=== PATIENT | female | born 1945 | race Caucasian/White ===

== ENCOUNTER 2017-01-10 22:28 | Inpatient (IN) | payer MEDICARE, BC ==
[~2017-01-10] VITALS: Ht 152.4 cm; Wt 67.7 kg
--- NOTE | ~2017-01-10 | HEMODYNAMI ---
PATIENT:SWATHI BERNAL MEDICAL RECORD: [id number] : 43 LOCATION:[facility] D212 ADMISSION DATE: 01/10/17 Generatedon:01/12/201710:05 Patient name: SWATHI BERNAL Patient #: [id number] SSN: [id number] : 1945 Date of study: 01/12/2017 Page: Of Hemodynamic Procedure Report Patient Data Patient Demographics Procedure consent was obtained First Name: SWATHI Gender: Female Last Name: GABE : 1945 Patient #: [id number] Age: 71 year(s) Race: SSN: [id number] Additional ID: [id number] Contact details [address]: [address] [place] [address] State: [place] City: [place] Zip code: [address] Past Medical History Allergies Allergen Reaction Date Comments Reported Demerol 01/11/2017 Sulfa drugs 01/11/2017 Other allergy 01/11/2017 HYDROCODONE Other allergy 01/12/2017 Demerol, Hydrocodone, Sulfa Admission Admission Data Admission Date: 01/10/2017 Admission Time: 23:37 Arrival Date: 01/12/2017 Arrival Time: 23:37 Admit Source: Other Insurance Payor: Medicare Room #: D.2122 Weight (lbs.): 149.25 Weight (kg.): 67.7 Lab Results Lab Result Date: 01/12/2017 Lab Result Time: 0:00 Biochemistry Name Units Result Min Max BUN mg/dl 15 --(--*-)-- 7 18 Creatinine mg/dl 1 --(--*-)-- 0.6 1.3 CBC Name Units Result Min Max Hemoglobin g/dl 14.4 --(*---)-- 13.5 17.5 Procedure Procedure Types Cath Procedure PCI Procedure Coronary Stent Initial PTCA Additional Miscellaneous Procedures Moderate Sedation up to 45 minutes Peripheral Cath Diagnostic Procedure Cath Peripheral Aelwx-Vldtrtc-Tnq-Off Procedure Description Procedure Date Procedure Date: 01/12/2017 Procedure Start Time: 9:23 Procedure End Time: 9:56 Procedure Staff Name Function Micheal Castellanos MD Performing Physician Brenda Rust RT Scrub Jordan Loera RN Nurse Tessie Mayorga RT Monitor Procedure Data Cath Procedure Fluoroscopy Diagnostic fluoroscopy Total fluoroscopy Time: time: 10.2 min 10.2 min Diagnostic fluoroscopy Total fluoroscopy dose: 790 dose: 790 mGy mGy Contrast Material Contrast Material Type Amount (ml) Isovue 370 109 Entry Location Entry Primary Successful Side Size Upsize Upsize Entry Closure Succes sful Closure Location (Fr) 1 (Fr) 2 (Fr) Remarks Device Remarks Femoral Left 6 Fr 6 Fr 6 Fr Exoseal artery Short Long Short Femoral Right 6 Fr Exoseal artery Short Estimated blood loss: 5 ml Diagnostic catheters Device Type Used For End Catheter Placement Cordis Tempo 5Fr UF Multi-vessel catheter Angiography Procedure Medications Medication Administration Route Dosage Oxygen NC 2 l/min Lidocaine 2% added to field 20 Heparin Flush Bag added to field 2 bags (1000units/500ml NS) 0.9% NaCl I.V. 100 ml/hr Versed I.V. 1 mg Fentanyl I.V. 50 mcg Versed I.V. 1 mg Fentanyl I.V. 50 mcg Heparin Bolus I.V. 4000 units 0.9% NaCl I.V. bolus 150 ml Hemodynamics Rest HGB: 14.4 (g/dl) Heart Rate: 78 (bpm) Snapshots Pre Cath Intra NCS Post Cath Vital Signs Time Heart Resp SPO2 NIBP (mmHg) Rhythm Pain Sedation Rate (ipm) (%) Status Level (bpm) 9:07:57 75 19 98 151/85(132) NSR 0 (11) 10(A) , No pain 9:12:16 78 15 98 153/83(115) NSR 0 (11) 10(A) , No pain 9:16:25 81 17 97 151/92(130) NSR 0 (11) 10(A) , No pain 9:20:42 78 17 96 133/74(107) NSR 0 (11) 10(A) , No pain 9:24:47 73 18 96 130/80(100) NSR 0 (11) 9(A) , No pain 9:29:03 71 17 95 91/62(86) NSR 0 (11) 9(A) , No pain 9:33:07 69 17 95 97/57(76) NSR 0 (11) 9(A) , No pain 9:38:00 73 16 94 81/60(78) NSR 0 (11) 9(A) , No pain 9:41:59 73 16 95 94/57(86) NSR 0 (11) 9(A) , No pain 9:46:03 72 17 96 112/63(87) NSR 0 (11) 9(A) , No pain 9:50:15 71 18 96 107/60(83) NSR 0 (11) 9(A) , No pain 9:53:19 73 17 97 110/65(80) NSR 0 (11) 10(A) , No pain 9:57:27 74 9 96 119/64(89) NSR 0 (11) 10(A) , No pain 10:01:39 73 10 96 111/67(97) NSR 0 (11) 10(A) , No pain Medications Time Medication Route Dose Verified Delivered Reason Notes Effectiveness by by 9:16:27 Oxygen NC 2 Micheal Buffie used for l/min Emanuel Loera RN procedure 9:16:36 Lidocaine 2% added 20ml Micheal Micheal for local to vial Emanuel Castellanos MD anesthetic field 9:16:42 Heparin Flush added 2 Micheal Micheal used for Bag to bags Emanuel Castellanos MD procedure (1000units/500ml field NS) 9:16:51 0.9% NaCl I.V. 100 Micheal Buffie Per physician ml/hr Emanuel Loera RN 9:19:18 Versed I.V. 1 mg Micheal Buffie for sedation Emanuel Loera RN 9:19:23 Fentanyl I.V. 50 Micheal Buffie for sedation mcg Emanuel Loera RN 9:24:50 Versed I.V. 1 mg Micheal Buffie for sedation Emanuel Loera RN 9:24:54 Fentanyl I.V. 50 Micheal Buffie for sedation mcg Emanuel Loera RN 9:29:35 0.9% NaCl I.V. 150 Micheal Buffie Per physician bolus ml Emanuel Loera RN 9:33:06 Heparin Bolus I.V. 4000 Micheal Buffie for verifie d units Emanuel Loera RN anticoagulation with dr castellanos Procedure Log Time Note 8:44:36 Informed consent obtained and on chart 8:44:41 Diagnostic Cath Status : Elective 8:45:05 Jordan Loera RN sent for patient. Start room use. 8:45:06 Time tracking: Regular hours 8:45:10 Plan of Care:Hemodynamics will remain stable., Cardiac rhythm will remain stable., Comfort level will be maintained., Respiratory function will remain adequate., Patient/ family verbilizes understanding of procedure., Procedure tolerated without complication., Recovers from procedure without complications.. 8:46:42 Admit Source: Other 8:46:45 Arrival Date: 01/12/2017 11:37:00 PM 8:46:59 Insurance Payor : Medicare 9:00:19 Patient received from Med II to [facility] 2 Alert and oriented. Tansferred to table in Supine position. 9:00:20 Warm blankets applied, and hilton hugger turned on for patient comfort. 9:00:20 Correct patient and procedure confirmed by team. 9:00:21 ECG and BP/O2 sat monitors applied to patient. 9:04:56 Vital chart was started 9:04:57 Full Disclosure recording started 9:05:15 H&P Date Dictated: 01/11/2017 Within 30 days and on chart., H&P Addendum completed by physician on day of procedure. (MUST COMPLETE FOR ALL OUTPATIENTS). 9:05:21 Pre-procedure instructions explained to patient. 9:05:21 Pre-op teaching completed and patient verbalized understanding. 9:05:23 Family in patients room. 9:05:31 Patient NPO since Midnight. 9:06:51 Vital chart was stopped 9:06:54 Vital chart was started 9:09:44 Patient allergic to Other allergyDemerol, Hydrocodone, Sulfa 9:09:46 Is the patient allergic to Iodine/contrast media? No. 9:09:47 Was the patient premedicated? No 9:10:15 Is patient on blood thinner?Yes 9:10:17 ACC The patient was administered the following blood thiners within the last 24 hours: ACCPlavix 9:10:23 Patient diabetic? No. 9:10:25 Previous problem with sedation/anesthesia? No ? 9:10:27 Snore? Yes 9:10:29 Sleep apnea? No 9:10:29 Deviated septum? No 9:10:30 Opens mouth fully? Yes 9:10:31 Sticks out tongue? Yes 9:10:35 Airway obstruction? No ? 9:10:46 Dentures? Yes in tight 9:10:50 Pre procedure: right dorsailis pedis pulse 1+ Palpable, but thready & weak; easily obliterated 9:10:52 Patient pain scale 0/10 ?. 9:10:59 IV patent on arrival in left forearm with 0.9% NaCl at [facility]. 9:11:04 Lab results completed and on chart. 9:11:08 Left groin area was prepped with chlora-prep and draped in sterile fashion 9:: Alarms reviewed by R. N. :: Sharps counted by scrub and verified by R.N. ::52 Lab Result : Creatinine 1 mg/dl 9:: Lab Result : BUN 15 mg/dl 9::52 Lab Result : Hemoglobin 14.4 g/dl 9:16:27 Oxygen 2 l/min NC was administered by Jordan Loera RN; used for procedure; 9:16:36 Lidocaine 2% 20ml vial added to field was administered by Micheal Castellanos MD; for local anesthetic; 9:16:42 Heparin Flush Bag (1000units/500ml NS) 2 bags added to field was administered by Micheal Castellanos MD; used for procedure; 9:16:51 0.9% NaCl 100 ml/hr I.V. was administered by Jordan Loera RN; Per physician; 9:17:13 Baseline sample Acquired. 9:18:32 Physician arrived 9:18:33 --------ALL STOP TIME OUT------ 9:18:33 Final Timeout: patient, procedure, and site verified with staff and physician. All members of the team are in agreement. 9:18:35 Left groin site verified by team. 9:18:38 Physical assessment completed. ASA score P 2 - A patient with mild systemic disease as per Micheal Castellanos MD. 9:18:42 Sedation plan: IV Moderate Sedation Versed, Fentanyl 9:19:03 Use device set Femoral PCI 9:19:04 Acist Syringe opened to sterile field. 9:19:04 Acist Hand Control opened to sterile field. 9:19:05 Bag Decanter opened to sterile field. 9:19:06 Medline Cath Pack opened to sterile field. 9:19:06 Terumo 6Fr Vershire Sheath opened to sterile field. 9:19:07 St Chatianya 260cm J .035 wire opened to sterile field. 9:19:07 Merit BasixCompak Inflation Kit opened to sterile field. 9:19:08 Acist Manifold opened to sterile field. 9:19:08 Tegaderm 4 x 4 opened to sterile field. 9:19:16 Chen Whisper J 300cm 0.014 guide wire opened to sterile field. 9:19:18 Versed 1 mg I.V. was administered by Jordan Loera RN; for sedation; 9::23 Fentanyl 50 mcg I.V. was administered by Jordan Loera RN; for sedation; 9:23:23 Procedure started. 9:23:29 Local anesthetic to left femerol artery with Lidocaine 2% by Micheal Castellanos MD.INITIAL ACCESS ONLY 9:24:32 A 6 Fr Short sheath was inserted into the Left Femoral artery 9:24:50 Versed 1 mg I.V. was administered by Jordan Loera RN; for sedation; 9:24:54 Fentanyl 50 mcg I.V. was administered by Jordan Loera RN; for sedation; 9:25:39 Cordis 6FR XBLAD 3.5 guide catheter opened to sterile field. 9:26:20 6 Fr xblad 3.5 guide catheter was inserted over the wire 9:28:41 Catheter removed. unable to cannulate vessel. 9:29:14 left iliac totally occluded; preparing for right femoral access 9:29:33 Cordis 6Fr Brite Tip 35cm Sheath opened to sterile field. 9:29:35 0.9% NaCl 150 ml I.V. bolus was administered by Jordan Loera RN; Per physician; 9:30:33 Sheath upsized to a 6 Fr Long. 9:31:21 Local anesthetic to right femoral artery with Lidocaine 2% by Micheal Castellanos MD.ADDITIONAL ACCESS 9:31:35 A 6 Fr Short sheath was inserted into the Right Femoral artery 9:33:06 Heparin Bolus 4000 units I.V. was administered by Jordan Loera RN; for anticoagulation; verified with dr castellanos 9:33:06 Terumo TORQUE DEVICE PLASTIC .038 opened to sterile field. 9:33:13 Terumo ANGLE 260cm glide wire opened to sterile field. 9:33:37 6 Fr xblad 3.5 guide catheter was inserted over the wire 9:33:44 LCA angiography performed. 9:33:47 Injector settings: Ml/sec: 3, Volume: 6, 9:33:53 whisper wire advanced. 9:33:56 Wire advanced across lesion. 9:34:05 Crab Orchard Amma Eagleye IVUS Catheter opened to sterile field. 9:34:08 IVUS catheter advanced over wire. 9:36:19 IVUS pass to LAD lesion performed. 9:36:21 IVUS catheter removed over wire. 9:37:15 Inflation Number: 1 A 1366 Technologiestronic Integrity 3.0 X 15 stent was prepped and advanced across the Prox LAD. The stent was deployed at 7 DULCE for 0:10 (min:sec). 9:37:34 Inflation number: 2 The stent balloon was then re-inflated across the Prox LAD to 0 DULCE for 0:09 (min:sec). 9:38:35 Wire redirected to diagonal. 9:40:20 Stent catheter was removed intact over wire. 9:40:24 Inflation number: 1 A Hachita Sci [place] 2.0 X 12 balloon was prepped and advanced across the 1st Diag, then inflated to 11 DULCE for 0:10 (min:sec). 9:41:00 Inflation number: 2 The Hachita Sci [place] 2.0 X 12 balloon was reinflated across the 1st Diag, to 11 DULCE for 0:15 (min:sec). 9:41:22 Balloon removed over the wire. 9:42:39 Terumo 5FR STRAIGHT 100CM glide catheter opened to sterile field. 9:42:54 A Cordis Tempo 5Fr UF catheter was advanced over the wire and used for Multi-vessel Angiography. 9:43:22 Abdominal angiogram w/ runoff was performed. 9:44:18 glide] wire advanced. 9:45:53 Wire removed. 9:46:02 Terumo ANGLED SS 260CM glide wire opened to sterile field. 9:47:29 Terumo ANGLED SS 260CM glide wire opened to sterile field. 9:47:39 glide wire advanced. 9:47:46 glide wire advanced. 9:50:00 Catheter removed. 9:50:22 Cordis 6Fr Exoseal opened to sterile field. 9:50:56 Wire removed. 9:50:57 Wire removed. 9:51:18 Sheath removed intact; hemostasis achieved with Exoseal to the Right Femoral artery. 9:51:39 Sheath upsized to a 6 Fr Short. 9:51:51 Cordis 6Fr Exoseal opened to sterile field. 9:52:02 Sheath removed intact; hemostasis achieved with Exoseal to the Left Femoral artery. 9:52:13 Procedure ended.(Physican Out) 9:53:12 Fluoroscopy time 10.20 minutes. 9:53:22 Flurop Dose total: 790 9:53:22 Fluoroscopy dose: 790 mGy 9:53:41 Contrast amount:Isovue 370 109ml. 9:53:42 Sharps counted by scrub and verified by R.N. 9:53:55 Insertion/operative site no bleeding no hematoma. 9:53:57 Post-op/insertion site Right Femoral artery dressed using a 4 x 4 and Tegaderm. 9:54:00 Post-op/insertion site Left Femoral artery dressed using a 4 x 4 and Tegaderm. 9:54:03 Post right femoral artery:stable 9:54:07 Post left femerol artery:stable 9:54:09 Post Procedure Pulses reassessed and unchanged 9:54:11 Post procedure rhythm: unchanged. 9:54:14 Estimated blood loss: 5 ml 9:54:15 Post procedure instruction explained to patient.Patient verbalizes understanding. 9:54:15 Patient needs reinforcement of post procedure teaching. 9:56:44 Procedure type changed to Cath procedure, PCI procedure, Coronary Stent Initial, PTCA Additional, Miscellaneous Procedures, Moderate Sedation up to 45 minutes, Peripheral Cath Diagnostic Procedure, Cath Peripheral, Liqqp-Hstsuzz-Vph-Off 9:56:50 See physician's report for complete and final results. 9:56:53 Report given to Med II. 9:56:55 Patient transfered to Med II with Stretcher. 9:56:58 Procedure ended. 9:56:58 Full Disclosure recording stopped 9:57:36 ACC-PCI Only Patient was given prescriptions, or instructed by Micheal Castellanos MD to start/continue the following medications upon discharge: Plavix 9:57:38 End room use (Document Last) 10:04:31 Patient Weight : 67.7 kg 10:05:11 Vital chart was stopped Intervention Summary Intervention Notes Time ActionType Lesion and Equipment Action# Pressure Duration Attributes Used 9:37:15 Place stent Prox LAD Medtronic 1 7 00:10 Integrity 3.0 X 15 stent 9:37:34 Reinflate Prox LAD Medtronic 2 0 00:09 stent Integrity balloon 3.0 X 15 stent 9:40:24 Inflate 1st Diag Hachita 1 11 00:10 balloon Sci Rutland 2.0 X 12 balloon 9:41:00 Reinflate 1st Diag Hachita 2 11 00:15 balloon Sci [place] 2.0 X 12 balloon Device Usage Item Name Manufacture Quantity Catalog Number Hospital Part Current Mini mal Lot# / Charge Number Stock Stock Serial# Code Acist Acist 1 35057 [id number] 380080 003357 20 Syringe Medical Systems Inc Acist Hand Acist 1 18881 644442 695226 034631 5 Control Medical Systems Inc Bag Microtek 1 2002S 617540 58104 166650 5 SozializeMe Medical Inc. Medline Cardinal 1 [id number] 485128 52539 169537 5 Cath Pack Health Terumo 6Fr Terumo 1 [id number] 164168 986837 933206 [address] Chaitanya 1 068355 815304 547895 525116 30 260cm J .035 wire Merit Merit 1 [id number] 048186 091355 740256 15 VQiao.comSaint Francis Medical CenterCinnafilm Medical Inflation Kit Acist Acist 1 49467 143718 806407 328203 5 AmeriPath Medical Systems Inc Tegaderm 4 3M 1 1626W 807582 877968 055005 5 x 4 Chen Chen 1 [id number] 034108 214279 443499 5 Whisper J Vascular 300cm 0.014 guide wire Cordis 6FR Cardinal 1 [id number] 301944 494548 469878 10 XBLAD 3.5 Health guide catheter Cordis 6Fr Cardinal 1 [id number] 115430 975184 752886 1 Brite Tip Health 35cm Sheath Terumo Hachita 1 TD01 435750 830957 586521 5 TORQUE Scientific DEVICE PLASTIC .038 Terumo Terumo 1 SQ6286 844930 610481 295254 5 ANGLE 260cm glide wire Crab Orchard Crab Orchard 1 [id number] 468054 249910 437096 8 Amma Eagleye IVUS Catheter Medtronic Medtronic 1 [id number] 949180 689007 516155 9 [id number] Integrity 3.0 X 15 stent Hachita Sci Hachita 1 [id number] 902233 389548 560918 1 [id number] Rutland Scientific 2.0 X 12 balloon Terumo 5FR Terumo 1 CG506 192367 53426 056942 4 STRAIGHT 100CM glide catheter Cordis Cardinal 1 [id number] 193627 706731 227151 10 Tempo 5Fr Health UF catheter Terumo Terumo 2 TC2863 244612 157771 961529 5 ANGLED SS 260CM glide wire Cordis 6Fr Cardinal 2 EX600 241394 361059 337341 10 Gravie Signature Audit [place] Stage Time Signature Unsigned Intra-Procedure 01/12/2017 Brenda Rust 10:04:58 AM RT(R) Signatures Monitor : Tessie Mayorga Signature : RT Date : Time : [place] [address] [place] [address]
--- NOTE | ~2017-01-10 | OP ---
PATIENT NAME: SWATHI BERNAL MEDICAL RECORD: [id number] :43 LOCATION:D.M2 D.2122 ADMISSION DATE:01/10/17 SURGEON: RADHA WATSON MD DATE OF OPERATION: 01/12/2017 PROCEDURES: 1. PTCA stent LAD. 2. Intravascular ultrasound of the LAD. 3. Selective coronary angiography. 4. PTCA of the LAD diagonal. INDICATION: Angina and coronary artery disease. PROCEDURE IN DETAIL: After informed consent was obtained and after detailed explanation of risks, benefits as well as alternative therapies, the patient elected to proceed with angiogram and angioplasty. The right femoral area was prepped and draped in normal sterile fashion. The right femoral artery was cannulated via modified Seldinger technique with placement of 6-Vietnamese sheath. All catheters exchanged through this sheath. FINDINGS: The left anterior descending has 2 areas of greater than 75% stenosis confirmed by intravascular ultrasound. This was addressed with 3.0 x 15 Integrity stent. The diagonal had plaque shift into this and then we addressed the diagonal with a 2.0 balloon. OVERALL IMPRESSION: Successful percutaneous transluminal coronary angioplasty stent of the left anterior descending going from greater than 75% initial stenosis to 0% residual. TRANSINT:[id number] Voice Confirmation ID: [id number] DOCUMENT ID: [id number] RADHA WATSON MD CC: [id number] DICTATION DATE: 01/12/1759 STEM ROLLER: 01/12/17 1357 ADM IN [facility] [address] [place] [id number]
--- NOTE | ~2017-01-10 | OP ---
PATIENT NAME: SWATHI BERNAL MEDICAL RECORD: [id number] :43 LOCATION:D.M2 D.2122 ADMISSION DATE:01/10/17 SURGEON: RADHA WATSON MD DATE OF OPERATION: 01/12/2017 PROCEDURES 1. Aortofemoral runoff. 2. Abdominal aortography. INDICATION: Claudication, peripheral vascular disease, total occlusion of left iliac. PROCEDURE IN DETAIL: After informed consent was obtained and after detailed explanation of risks, benefits as well as alternative therapies, the patient elected to proceed with angiogram and aortofemoral runoff. The left femoral area was prepped and draped in normal sterile fashion. Left femoral artery was cannulated via modified Seldinger technique with placement of 6-Japanese sheath. FINDINGS: Abdominal aortography was performed. The catheter was pulled down for aortofemoral runoff. Abdominal aortography reveals no significant known aortic disease. No dissection or aneurysm formation. RIGHT LEG: A. Iliac: The common internal and external iliacs have moderate irregularities, but no flow-limiting stenosis. B. Femoral system: The common superficial and deep femoral have moderate irregularities, but no flow-limiting stenosis. C. Popliteal and infrapopliteal vessels are patent with good 3-vessel runoff to the foot. LEFT LEG: A. Iliac. The common iliac is totally occluded. This is a very short total occlusion, heavily calcified. Otherwise, the iliac system has only moderate irregularities. B. Femoral system: The common superficial and deep femoral have moderate irregularities, but no flow-limiting stenosis. C. Popliteal and infrapopliteal vessels are widely with good 3-vessel runoff to the foot. Attempted percutaneous transluminal angioplasty stent of the left iliac, we tried from above and below with the glide cath glide wire combination, we could not traverse heavy calcified total occlusion. OVERALL IMPRESSION: Total occlusion of the left iliac could not be traversed the transcatheter approach, consider surgery. TRANSINT:[id number] Voice Confirmation ID: [id number] DOCUMENT ID: [id number] OPERATIVE REPORT [id number] SWATHI BERNAL RADHA WATSON MD CC: [id number] DICTATION DATE: 01/12/17 0959 PROPERTY FIELD ADJUSTER: 01/12/17 1359 ADM IN [place] [address] [place] [address]
--- NOTE | ~2017-01-10 | DS ---
PATIENT:SWATHI ROBERSON :43 MEDICAL RECORD: [id number] DISCHARGE SUMMARY ADMISSION DATE: 01/10/17 DISCHARGE DATE: 01/12/17 DISCHARGE DIAGNOSES: 1. Angina. 2. Coronary artery disease. 3. Percutaneous transluminal coronary angioplasty stent of right coronary artery and left anterior descending this admission. 4. Peripheral vascular disease. 5. Hyperlipidemia. HOSPITAL COURSE: Mrs. Roberson presented to [facility] with a non-Q-wave myocardial infarction, found to have 2-vessel coronary artery disease of the LAD and RCA, underwent successful PTCA stent of above territories. 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 We could not reverse this with transcatheter approach. She was discharged home with the addition of aspirin, Plavix, and Pravachol to her medical regimen. Beta blockade was not undertaken due to bradycardia and hypotension. She will follow up with [facility] in 1 month. TRANSINT:[id number] Voice Confirmation ID: [id number] DOCUMENT ID: [id number] RADHA WATSON MD CC: [id number] DICTATION DATE: 01/12/17955 FLOUR BLENDER HELPER: 01/13/17 0100 DIS IN 01/12/17 [facility] [address] [place] [address]
--- NOTE | ~2017-01-10 | OP ---
PATIENT NAME: SWATHI BERNAL MEDICAL RECORD: [id number] :43 LOCATION:D.M2 D.2122 ADMISSION DATE:01/10/17 SURGEON: RADHA WATSON MD DATE OF OPERATION: 01/11/2017 PROCEDURES: 1. PTCA stent, RCA. 2. Intravascular ultrasound, RCA. 3. Left heart catheterization. 4. Selective coronary angiography. 5. Left ventriculogram. INDICATION: Myocardial infarction. PROCEDURE IN DETAIL: After informed consent was obtained and after detailed explanation of risks, benefits as well as alternative therapies, the patient elected to proceed with angiogram and angioplasty. The right femoral area is prepped and draped in normal sterile fashion. Right femoral artery was cannulated via modified Seldinger technique with placement of 6-Turkish sheath. All catheters exchanged through this sheath. FINDINGS: The left ventriculogram was performed in standard 30-degree WILSON view, reveals good cardiac wall motion throughout all segments. Overall ejection fraction estimated 60%. SELECTIVE CORONARY ANGIOGRAPHY: 1. Left main is with no significant angiographic disease. 2. Left anterior descending has 2 areas of at least 70% stenosis that are hazy. 3. Left circumflex has moderate irregularities, but no flow-limiting stenosis. 4. Right coronary has a hazy stenosis in the mid vessel confirmed to be at 76% by intravascular ultrasound. PTCA STENT OF THE RIGHT CORONARY: The stent used was a 4.0 x 18 mm Integrity. Result was 0% residual stenosis. OVERALL IMPRESSION: Successful percutaneous transluminal coronary angioplasty stent of the right coronary artery going from 76% initial stenosis to 0% residual. PLAN: PTCA stent of the LAD in the near future. TRANSINT:[id number] Voice Confirmation ID: [id number] DOCUMENT ID: [id number] RADHA WATSNO MD CC: [id number] DICTATION DATE: 01/11/17 1125 HIDES INSPECTOR: 01/11/17 1202 ADM IN [place] [id number] [place] [address]
--- NOTE | ~2017-01-10 | HEMODYNAMI ---
PATIENT:SWATHI BERNAL MEDICAL RECORD: [id number] : 43 LOCATION:[address] [id number] ADMISSION DATE: 01/10/17 Generatedon:01/11/201711:30 Patient name: SWATHI BERNAL Patient #: [id number] SSN: : 1945 Date of study: 01/11/2017 Page: Of Hemodynamic Procedure Report Patient Data Patient Demographics Procedure consent was obtained First Name: SWATHI Gender: Female Last Name: GABE : 1945 Patient #: [id number] Age: 71 year(s) Race: Unknown Additional ID: [id number] Contact details [address]: [address] [place] [address] State: [place] City: [place] Zip code: [address] Past Medical History Allergies Allergen Reaction Date Comments Reported Demerol 01/11/2017 Sulfa drugs 01/11/2017 Other allergy 01/11/2017 HYDROCODONE Admission Admission Data Admission Date: 01/10/2017 Admission Time: 23:37 Room #: D.2122 Lab Results Lab Result Date: 01/11/2017 Lab Result Time: 0:00 Biochemistry Name Units Result Min Max BUN mg/dl 15 --(--*-)-- 7 18 Creatinine mg/dl 1 --(--*-)-- 0.6 1.3 CBC Name Units Result Min Max Hemoglobin g/dl 14.4 --(*---)-- 13.5 17.5 Procedure Procedure Types Cath Procedure Diagnostic Procedure LHC LHC w/Coronaries FFR/IVUS Intra-Coronary IVUS Initial PCI Procedure Coronary Stent Initial Miscellaneous Procedures Moderate Sedation up to 30 minutes Procedure Description Procedure Date Procedure Date: 01/11/2017 Procedure Start Time: 11:09 Procedure End Time: 11:30 Procedure Staff Name Function Micheal Castellanos MD Performing Physician Juan Manuel Olson RT Scrub Mikki Jj RN Nurse Berry Humphrey RT Monitor Procedure Data Cath Procedure Fluoroscopy Diagnostic fluoroscopy Total fluoroscopy Time: 4.4 time: 4.4 min min Diagnostic fluoroscopy Total fluoroscopy dose: 593 dose: 593 mGy mGy Contrast Material Contrast Material Type Amount (ml) Isovue 300 111 Entry Location Entry Primary Successful Side Size Upsize Upsize Entry Closure Succes sful Closure Location (Fr) 1 (Fr) 2 (Fr) Remarks Device Remarks Femoral Right 5 Fr 6 Fr Exoseal artery Short Diagnostic catheters Device Type Used For End Catheter Placement Cordis 5Fr Pigtail LV Angiography Catheter (MP) Cordis 5Fr JL 4.0 Left Coronary Catheter (MP) Angiography Cordis 5Fr 3DRC Catheter Right Coronary (MP) Angiography Procedure Complications No complications Procedure Medications Medication Administration Route Dosage Oxygen NC 2 l/min Heparin Flush Bag added to field 2 bags (1000units/500ml NS) Lidocaine 2% added to field 20 Versed I.V. 1 mg Fentanyl I.V. 50 mcg Heparin Bolus I.V. 5000 units Integrilin (Bolus I.V. 6.2 ml 2mg/ml) Nitroglycerin IC/IA I.C. 200 mcg Nitroglycerin IC/IA I.C. 150 mcg Plavix P.O. 450 mg Hemodynamics Rest HGB: 14.4 (g/dl) Heart Rate: 72 (bpm) Snapshots Pre Cath Intra NCS Post Cath Vital Signs Time Heart Resp SPO2 etCO2 [id number] NIBP (mmHg) Rhythm Pain Sedation Rate (ipm) (%) (mmHg) (mmHg) Status Level (bpm) 10:35:01 64 15 100 0 0 168/82(120) NSR 0 (11) 10(A) , No pain 10:39:29 68 19 100 0 0 170/80(129) NSR 0 (11) 10(A) , No pain 10:43:51 67 16 99 0 0 138/70(112) NSR 0 (11) 10(A) , No pain 10:48:09 62 18 98 0 0 133/71(108) NSR 0 (11) 10(A) , No pain 10:52:23 64 17 95 0 0 121/72(96) NSR 0 (11) 10(A) , No pain 10:56:37 68 17 98 0 0 103/62(73) NSR 0 (11) 10(A) , No pain 11:00:47 62 17 98 0 0 97/58(85) NSR 0 (11) 10(A) , No pain 11:04:55 66 16 98 0 0 96/54(63) NSR 0 (11) 10(A) , No pain 11:09:03 65 16 99 0 0 77/57(66) NSR 0 (11) 9(A) , No pain 11:13:02 66 16 96 0 0 93/55(82) NSR 0 (11) 9(A) , No pain 11:17:08 66 16 96 0 0 94/57(86) NSR 0 (11) 9(A) , No pain 11:21:10 77 19 98 0 0 112/71(105) NSR 0 (11) 9(A) , No pain 11:24:22 83 19 99 0 0 132/85(126) NSR 0 (11) 10(A) , No pain 11:28:38 79 9 99 0 0 132/76(111) NSR 0 (11) 10(A) , No pain Medications Time Medication Route Dose Verified Delivered Reason Notes Effectiveness by by 10:34:15 Oxygen NC 2 Micheal Mikki Per physician l/min Emanuel Jj RN 10:34:25 Heparin Flush added 2 Micheal Burton used for Bag to bags Emanuel Castellanos MD procedure (1000units/500ml field NS) 10:34:33 Lidocaine 2% added 20ml Micheal Burton used for to vial Emanuel Castellanos MD procedure field 11:05:20 Versed I.V. 1 mg Micheal Mikki for sedation Emanuel Jj RN 11:05:26 Fentanyl I.V. 50 Micheal Mikki for sedation mcg Emanuel Jj RN 11:15:14 Heparin Bolus I.V. 5000 Micheal Mikki for dose units Emanuel Jj RN anticoagulation verified with dr castellanos 11:19:04 Integrilin I.V. 6.2 Micheal Mikki for wasted (Bolus 2mg/ml) ml Emanuel Jj RN antiplatelet 3.8ml therapy 11:20:23 Nitroglycerin I.C. 200 Micheal Burton for IC/IA mcg Emanuel Castellanos MD vasodilation 11:21:06 Nitroglycerin I.C. 150 Micheal Burton for IC/IA mcg Emanuel Castellanos MD vasodilation 11:24:54 Plavix P.O. 450 Micheal Kaye for mg Emanuel Jj RN antiplatelet therapy Procedure Log Time Note 10:11:23 ACC Patient presents with Unstable Angina CCS Anginal Class 3--Marked limitation of physical activity, angina occurs with ordinary activity.. 10:11:25 Diagnostic Cath status Urgent 10:11:28 Berry Humphrey RT(R) sent for patient. Start room use. 10:11:30 Time tracking: Regular hours 10:11:35 Plan of Care:Hemodynamics will remain stable., Cardiac rhythm will remain stable., Comfort level will be maintained., Respiratory function will remain adequate., Patient/ family verbilizes understanding of procedure., Procedure tolerated without complication., Recovers from procedure without complications.. 10:12:36 Lab Result : BUN 15 mg/dl 10::36 Lab Result : Creatinine 1 mg/dl 10::36 Lab Result : Hemoglobin 14.4 g/dl 10:25:49 Patient received from PCU to CCL 1 Alert and oriented. Tansferred to table in Supine position. 10:25:50 Warm blankets applied, and hilton hugger turned on for patient comfort. 10:25:50 Correct patient and procedure confirmed by team. 10:25:52 Signed procedure consent form obtained from patient. 10:25:53 ECG and BP/O2 sat monitors applied to patient. 10:33:41 Vital chart was started 10:33:42 Baseline sample Acquired. 10:34:15 Oxygen 2 l/min NC was administered by Mikki Jj RN; Per physician; 10:34:25 Heparin Flush Bag (1000units/500ml NS) 2 bags added to field was administered by Micheal Castellanos MD; used for procedure; 10:34:33 Lidocaine 2% 20ml vial added to field was administered by Micheal Castellanos MD; used for procedure; 10:35:09 Baseline sample Acquired. 10:38:23 Rhythm: sinus rhythm 10:38:24 Full Disclosure recording started 10:38:29 H&P Date Dictated: 01/11/2017 Within 30 days and on chart.. 10:38:30 Pre-procedure instructions explained to patient. 10:38:31 Pre-op teaching completed and patient verbalized understanding. 10:38:33 Family in patients room. 10:38:35 Patient NPO since Breakfast. 10:38:43 Patient allergic to Demerol 10:38:52 Patient allergic to Sulfa drugs 10:39:04 Patient allergic to Other allergyHYDROCODONE 10:39:06 Is the patient allergic to Iodine/contrast media? No. 10:39:35 Is patient on blood thinner?Yes 10:39:40 ACC The patient was administered the following blood thiners within the last 24 hours: ACCPlavix 10:39:46 Patient diabetic? No. 10:39:47 ----Pre-sedation anethsthesia assessment.---- 10:39:52 Previous problem with sedation/anesthesia? No ? 10:39:53 Snore? Yes 10:39:56 Sleep apnea? No 10:39:58 Deviated septum? No 10:40:00 Opens mouth fully? Yes 10:40:01 Sticks out tongue? Yes 10:40:03 Airway obstruction? No ? 10:40:08 Dentures? Yes IN TIGHT 10:40:14 Pre procedure: right dorsailis pedis pulse 1+ Palpable, but thready & weak; easily obliterated 10:40:17 Patient pain scale 0/10 ?. 10:40:24 IV patent on arrival in left hand with 0.9% NaCl at 10ml/hr. 10:44:02 Lab results completed and on chart. 10:44:06 Right groin area was prepped with chlora-prep and draped in sterile fashion 10:44:07 Alarms reviewed by R. N. 10:44:07 Sharps counted by scrub and verified by R.N. 10:44:28 Use device set Femoral Dx 10:44:29 Acist Syringe opened to sterile field. 10:44:29 Bag Decanter opened to sterile field. 10:44:30 Medline Cath Pack opened to sterile field. 10:44:30 Terumo 5Fr [place] Sheath opened to sterile field. 10:44:31 St Chaitanya 260cm J .035 wire opened to sterile field. 10:44:32 Acist Hand Control opened to sterile field. 10:44:32 Acist Manifold opened to sterile field. 10:44:32 Diagnostic Infinity 5Fr Multipack catheter opened to sterile field. 10:44:33 Tegaderm 4 x 4 opened to sterile field. 10:54:03 Zero performed for pressure channel P1 11:04:53 --------ALL STOP TIME OUT------ 11:04:54 Final Timeout: patient, procedure, and site verified with staff and physician. All members of the team are in agreement. 11:04:56 Right groin site verified by team. 11:04:58 Physical assessment completed. ASA score P 2 - A patient with mild systemic disease as per Micheal Castellanos MD. 11:05:02 Sedation plan: IV Moderate Sedation Versed, Fentanyl 11:05:20 Versed 1 mg I.V. was administered by Mikki Jj RN; for sedation; 11::26 Fentanyl 50 mcg I.V. was administered by Mikki Jj RN; for sedation; 11::40 Procedure started. 11::56 Local anesthetic to right femoral artery with Lidocaine 2% by Micheal Castellanos MD.INITIAL ACCESS ONLY 11:10:05 A 5 Fr sheath was inserted into the Right Femoral artery 11:10:27 A Cordis 5Fr Pigtail Catheter (MP) was advanced over the wire and used for LV Angiography. 11:10:31 LV angiography performed. 11:10:34 LV gram done using WILSON 11:10:48 LV hemodynamics recorded. 11:10:50 Injector settings: Ml/sec: 10, Volume: 20, 11:11:08 EF : 60 % 11:11:13 Catheter removed. 11:11:36 A Cordis 5Fr JL 4.0 Catheter (MP) was advanced over the wire and used for Left Coronary Angiography. 11:12:31 LCA angiography performed. 11:12:32 Catheter removed. 11:12:37 A Cordis 5Fr 3DRC Catheter (MP) was advanced over the wire and used for Right Coronary Angiography. 11:12:40 RCA angiography performed. 11:13:14 Catheter removed. 11:14:46 Procedure type changed to Cath procedure, Diagnostic procedure, LHC, LHC w/Coronaries, FFR/IVUS, Intra-Coronary IVUS Initial, PCI procedure, Coronary Stent Initial, Miscellaneous Procedures, Moderate Sedation up to 30 minutes 11:14:58 Sheath upsized to a 6 Fr Short. 11:15:11 6 Fr AR 1 guide catheter was inserted over the wire 11:15:14 Heparin Bolus 5000 units I.V. was administered by Mikki Анна RN; for anticoagulation; dose verified with dr castellanos 11:15:14 WHISPER wire advanced. 11:15:21 FFR/IVUS 11:15:21 IVUS catheter advanced over wire. 11:15:23 IVUS pass to RCA lesion performed. 11:16:11 Terumo 6Fr [place] Sheath opened to sterile field. 11:16:11 Chen Whisper J 300cm 0.014 guide wire opened to sterile field. 11:16:11 Kangou BasixCompak Inflation Kit opened to sterile field. 11:16:12 [place] E[place] IVUS Catheter opened to sterile field. 11:16:12 DOCUSYStronic Launcher 6Fr AR 1.0 guide catheter opened to sterile field. 11:19:04 Integrilin (Bolus 2mg/ml) 6.2 ml I.V. was administered by Mikki Jj RN; for antiplatelet therapy; wasted 3.8ml 11:19:14 IVUS catheter removed over wire. 11:19:34 ACC PCI Site: mRCA has 76% stenosis. 11:19:36 ACC Pre-intervention [place] Flow is 3. 11:20:23 Nitroglycerin IC/IA 200 mcg I.C. was administered by Micheal Castellanos MD; for vasodilation; 11:20:57 Inflation Number: 1 A Medtronic Integrity 4.0 X 15 stent was prepped and advanced across the Mid RCA. The stent was deployed at 13 DULCE for 0:10 (min:sec). 11:21:06 Nitroglycerin IC/IA 150 mcg I.C. was administered by Micheal Castellanos MD; for vasodilation; 11:21:37 Stent catheter was removed intact over wire. 11:21:38 Wire removed. 11:21:38 Guide catheter removed. 11:21:45 Sheath removed intact; hemostasis achieved with Exoseal to the Right Femoral artery. 11:21:52 Cordis 6Fr Exoseal opened to sterile field. 11:21:54 Procedure ended.(Physican Out) 11:22:24 Fluoroscopy time 04.40 minutes. 11::28 Fluoroscopy dose: 593 mGy 11::28 Flurop Dose total: 593 11:23:42 Contrast amount:Isovue 300 111ml. 11:24:20 Sharps counted by scrub and verified by R.N. 11:24:22 Insertion/operative site no bleeding no hematoma. 11:24:25 Post-op/insertion site Right Femoral artery dressed using a 4 x 4 and Tegaderm. 11:24:28 Post right femoral artery:stable 11:24:29 Post Procedure Pulses reassessed and unchanged 11:24:34 Post procedure rhythm: sinus rhythm 11:24:36 Post procedure instruction explained to patient.Patient verbalizes understanding. 11:24:54 Plavix 450 mg P.O. was administered by Mikki Jj RN; for antiplatelet therapy; 11:30:03 Procedure and supply charges have been captured, reviewed, submitted and are correct. 11:30:07 Procedure Complication : No complications 11:30:08 Vital chart was stopped 11:30:09 See physician's report for complete and final results. 11:30:11 Report given to PCU. 11:30:14 Patient transfered to PCU with Bed. 11:30:17 Procedure ended. 11:30:17 Full Disclosure recording stopped 11:30:20 End room use (Document Last) Intervention Summary Intervention Notes Time ActionType Lesion and Equipment Action# Pressure Duration Attributes Used 11:20:57 Place stent Mid RCA Medtronic 1 13 00:10 Integrity 4.0 X 15 stent Device Usage Item Name Manufacture Quantity Catalog Hospital Part Current Minimal L ot# / Number Charge Number Stock Stock Serial# Code Acist Acist 1 [id number] 187564 170470 20 Syringe Medical Systems ciValue Bag Microtek 1 2002S 309495 42046 233844 5 [employer] Inc. Medline Cardinal 1 [id number] 283881 88771 576504 5 Cath Pack Instinctiv Terumo 5Fr Terumo 1 [id number] 965874 554341 201310 [address] [place] Chaitanya 1 861458 669599 514116 395135 30 260cm J .035 wire Acist Hand Acist 1 65798 667198 493628 798849 5 Control Medical Systems Inc Acist Acist 1 90776 259585 168433 513296 5 Physiq Medical Systems Inc Diagnostic Cardinal 1 [id number] 037567 01081 990478 30 OvaScience 5Fr Multipack catheter Tegaderm 4 3M 1 1626W 989239 745937 620240 5 x 4 Cordis 5Fr Cardinal 1 347461 5 Pigtail Health Catheter (MP) Cordis 5Fr Cardinal 1 767582 5 JL 4.0 Health Catheter (MP) Cordis 5Fr Cardinal 1 909880 5 3DRC Health Catheter (MP) Terumo 6Fr Terumo 1 [id number] 371270 053940 520879 40 [place] Sheath Chen [place] 1 [id number] 278623 681167 036733 5 Whisper J Vascular 300cm 0.014 guide wire Merit Merit 1 MI8858 104768 830924 287012 15 OpenStudy Medical Inflation Kit [place] 1 66664D 332741 031196 270536 8 [place]ag[place] IVUS Catheter Medtronic Medtronic 1 [id number] 233235 13014 142688 1 Launcher 6Fr AR 1.0 guide catheter Medtronic Medtronic 1 [id number] 705640 706655 1 0 [id number] Integrity 4.0 X 15 stent Cordis 6Fr Cardinal 1 EX600 786213 110384 543887 10 [facility] Instinctiv Signature Audit [place] Stage Time Signature Unsigned Intra-Procedure 01/11/2017 Berry Humphrey 11:30:40 AM RT(R) Signatures Monitor : Berry Humphrey RT Signature : Date : Time : [address] [id number] [place] [address]
--- NOTE | ~2017-01-10 | HP ---
PATIENT: SWATHI ROBERSON MEDICAL RECORD: [id number] ACCOUNT: [id number] LOCATION:[address] : 43 ADMISSION DATE: 01/10/17 HISTORY AND PHYSICAL EXAMINATION DIAGNOSES: 1. Non-Q-wave myocardial infarction. 2. Chest pain. 3. Osteoarthritis. HISTORY OF PRESENT ILLNESS: Mrs. Roberson only has a history of osteoarthritis. No cardiac history. She began having chest pain yesterday. Her troponin is mildly elevated from [facility], transferred here for further care. She has had no further chest pain. PHYSICAL EXAMINATION: GENERAL APPEARANCE: Well-nourished, well-developed, appears stated age. Level of distress, comfortable. PSYCHIATRIC: Mental status, alert, normal affect. Orientation, oriented to time, place and person. EYES: Lids and conjunctiva, noninjected. No discharge, no pallor. ENT: Lips, teeth, gums, normal dentition. Oropharynx, no cyanosis, no pallor. NECK: Carotid arteries, bilateral normal upstroke, no bruits, no thrills. JUGULAR VEINS: No jugular venous pressure or distention. CERVICAL LYMPH NODES: Nontender, nonenlarged. THYROID: Not enlarged. Nontender. No nodules. LUNGS: Respiratory effort, unlabored. CHEST: Normal curvature. No thoracic deformity. No chest wall tenderness. Percussion, resonant. Auscultation, clear. No wheezes, no rales, no rhonchi. CARDIOVASCULAR: Precordial exam, nondisplaced. No heaves or pericardial thrills. Rate and rhythm, regular. Heart sounds, normal S1, normal S2. No S3, no gallop, no rub. Systolic murmur, not heard. Diastolic murmur, not heard. EXTREMITIES: No cyanosis, no edema. Peripheral pulses, full and equal in all extremities, except as noted. No bruits appreciated. ABDOMEN: Soft, nondistended. Normal aorta. No bruit. Nontender. No masses. Liver, nontender, no hepatomegaly. Spleen, nontender, no splenomegaly. MUSCULOSKELETAL: No joint tenderness. No joint swelling. No erythema. NEUROLOGICAL: Normal gait, normal strength, normal tone. SKIN: Warm and dry. REVIEW OF SYSTEMS: The patient reports easy bruising but reports no swollen glands. The patient reports no fever, no night sweats, no significant weight gain, no significant weight loss. No significant exercise tolerance. The patient reports no dry eyes, no irritation, no vision change. Patient reports no difficulty hearing and no ear pain. Patient reports no frequent nose bleeds or nose and sinus problems. Patient reports on arm pain on exertion. No shortness of breath while lying down. No history of heart murmur. Patient reports no cough, no wheezing or coughing up blood. Patient reports no abdominal pain, no vomiting. Normal appetite. No diarrhea and not vomiting blood. No nausea and no constipation. Patient reports no incontinence. No difficulty urinating. No hematuria. No increased frequency. Patient reports no muscle aches. No weakness, no arthralgias, no back pain. No swelling of the extremities. Patient reports no abnormal mole, no jaundice, no rashes. Reports no loss of consciousness. No weakness and no numbness. No seizures, dizziness, or headaches. The patient reports no depression, no sleep disturbance, feeling HISTORY AND PHYSICAL [id number] SWATHI ROBERSON safe in a relationship and no alcohol abuse. Patient reports on fatigue. Reports no runny nose or sinus pressure. No itching, no hives, and no frequent sneezing. OVERALL IMPRESSION: Non-Q-wave myocardial infarction. We will proceed with coronary angiography. Further care depends upon findings of the angiography. TRANSINT:[id number] Voice Confirmation ID: [id number] DOCUMENT ID: [id number] RADHA WATSON MD CC: [id number] DICTATION DATE: 01/11/17 1001 SOAKER MEAT: 01/11/17 1044 ADM IN [facility] [address] [place] [address]
--- NOTE | 2017-01-10 23:40 | NUR ---
RECEIVED PT TO ROOM 2121 VIA EMS, ALERT O X3. FAMILY WITH PT. ASSESS AND HISTORY COMPLETE. UPDATED MED REC FOR MD REVIEW IN AM. DISCUSSED PLAN OF CARE WITH PT AND NPO AFTER MN FOR PROBABLE CATH IN AM. CONSENTS OBTAINED AND PLACED ON CHART. ORIENTED TO ROOM AND CALL LIGHT. PLACED ON TELE-SR 72. CONT TO MONITOR.
[2017-01-11] VITALS: BP 153/51
[2017-01-11 00:02] VITALS: Ht 152.4 cm; Wt 67.7 kg
[2017-01-11] MEDS ORDERED: MOBIC7.5 MG PO (00:05)
--- NOTE | 2017-01-11 00:54 | NUR ---
BILAT SCD ON PT, PT HAD [facility] IN [facility].
--- NOTE | 2017-01-11 03:22 | NUR ---
RESTING WELL WITH EYES CLOSED, CALL LIGHT IN REACH. WILL CONT TO MONITOR.
[2017-01-11 04:00] VITALS: BP 116/48
[2017-01-11 05:55] LABS: BASOPHILS 0.4 % (0-2); EOSINOPHILS 2.5 % (0-7); HEMATOCRIT 41.8 % (36.0-48.0); HEMOGLOBIN 14.4 g/dL (12-16); IMMATURE GRANULOCYTES 0.2 % (0-5); MCHC 34.4 g/dL (31.0-37.0); MCV 98.8 fL (80.0-100.0); MEAN PLATELET VOLUME 9.8 fL (7.4-10.4); MONOCYTES 10.2 % (2-11); NEUTROPHILS 48.7 % (40-80); PLATELET COUNT 247 10x3/uL (130-400); RBC 4.23 10x6/uL (4.00-5.40); RDW 13.3 % (11.5-14.5); WBC 12.8 10x3/uL (4.8-10.8)
[2017-01-11 06:46] LABS: ANION GAP 11.7 mmol/L (8-16); CALCIUM 9.4 mg/dL (8.5-10.1); CARBON DIOXIDE 28.1 mmol/L (21.0-32.0); POTASSIUM - SERUM 3.8 mmol/L (3.5-5.1)
[2017-01-11 07:03] LABS: TROPONIN-I 19.481 ng/mL (0.000-0.060)
--- NOTE | 2017-01-11 07:30 | NUR ---
PT RESTING QUIETLY EYES CLOSED RESP UNLABORED NAD NOTED
[2017-01-11 08:03] VITALS: BP 127/63
--- NOTE | 2017-01-11 08:09 | NUR ---
ASSESSMENT COMPLETED. DENIES ANY PAIN. TELEMERTY SHOWS SR. SL TO LEFT AC. SCDS ON. SR UP WITH CALL LIGHT IN REAC. WILL MONITOR
[2017-01-11 10:36] LABS: CHOL - HDL RATIO 4.5 ratio (2.3-4.1); LDL-HDL RATIO 1.4 ratio (1.5-3.5)
--- NOTE | 2017-01-11 11:53 | NUR ---
BACK FROM EDISCOVERY PROJECT MANAGER. RIGHT GROIN WITH FEM STOP ON. PPP. TELEMERTY SHOWS SR. FAMILY AT BEDSIDE. WILL MONITOR
--- NOTE | 2017-01-11 13:27 | NUR ---
V/S STABLE, RIGHT GROIN WITH FEM STOP IN PLACE. FEM STOP RELEASED SOME WITH NO BLEEDING NOTED. PPP. TELEMERTY SHOWS SR. WILL MONITOR
--- NOTE | 2017-01-11 16:05 | NUR ---
Patient Name: SWATHI BERNAL Admission Status: Elective Accout number: [id number] Admission Date: 01-10-2017 : 1945 Admission Diagnosis: Attending: THERESA Current LOS: 1 Anticipated DC Date: 01-12-2017 Planned Disposition: Home Primary Insurance: MEDICARE A & B Discharge Planning Comments: * Is the patient Alert and Oriented? Yes 0 * How many steps to enter\exit or inside your home? NONE 0 * PCP DR. HOOVER IN [place] 0 * Pharmacy [facility] IN [place] 0 * Preadmission Environment Home Alone 0 * ADLs Independent 0 * Equipment None 0 * Other Equipment NO MEDICAL EQUIPMENT PROVIDER PREFERENCE 0 * List name and contact numbers for known caregivers / representatives who currently or will assist patient after discharge: JUAN FRANCISCO BERNAL, SON, 0 * Community resources currently utilized None 0 * Please name any agencies selected above. NONE 0 * Additional services required to return to the preadmission environment? No 0 * Can the patient safely return to the preadmission environment? Yes 0 * Has this patient been hospitalized within the prior 30 days at any hospital? No 0 CM ATTEMPTED TO MEET WITH PT IN ROOM TO DISCUSS DISCHARGE PLANNING AND NEEDS, PT SLEEPING, CM MET WITH PT'S SON, JUAN FRANCISCO. PT'S SON REPORTS PT LIVING AT HOME INDEPENDENTLY, ALONE AND WITH NO MEDICAL EQUIPMENT OR OUTSIDE SERVICES. THEY HAVE MET WITH THE DOCTOR AND DO NO BELIEVE PT TO HAVE ANY DISCHARGE NEEDS AND WILL DISCHARGE HOME. FAMILY TO TRANSPORT HOME AT DISCHARGE TOMORROW. CM DISCUSSED AVAILABILITY OF HOME HEALTH, REHAB SERVICES AND MEDICAL EQUIPMENT. PT DENIES DISCHARGE NEEDS AT THIS TIME. 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 CM PROVIDED [employer] SUIT[employer] DISCOUNT CARD. PT TO DISCHARGE HOME ALONE, FAMILY TO TRANSPORT. CM TO FOLLOW AND ASSIST NEEDED. Cotton Tier: Fabien Todd
[2017-01-11 16:08] VITALS: BP 141/67
--- NOTE | 2017-01-11 18:10 | NUR ---
LYING QUIETLY. EYES CLOSED.RESP REG AND NON LABORED. TELEMERTY SHOWS SR. RIGHT GROIN SOFT WITH DRSG CLEAN AND DRY. WILL MONITOR
--- NOTE | 2017-01-11 19:32 | NUR ---
AWAKE WITHOUT DISTRESS. SITE CLEAN WITHOUT HEMATOMA. MONITOR SHOWS SR@72.
[2017-01-11 21:48] VITALS: BP 128/61
[2017-01-12 01:50] VITALS: BP 142/69
[2017-01-12 05:52] VITALS: BP 128/70
--- NOTE | 2017-01-12 07:20 | NUR ---
ASSESSMENT DONE. DENIES NEEDS.
[2017-01-12 08:23] VITALS: BP 185/72
--- NOTE | 2017-01-12 09:00 | NUR ---
TO TOBACCO DRUMMER PER BED
--- NOTE | 2017-01-12 10:15 | NUR ---
RETURN FROM BARTACKER PER BED. DRSG TO [facility]. PULSES PALP. FAMILY AT SIDE.
[2017-01-12 11:42] VITALS: BP 139/63
--- NOTE | 2017-01-12 12:30 | NUR ---
BED REST CONT. RESP UL ON 02 2L NC. IV PATENT. FAMILY AT BS. WILL CONT. PLAN OF CARE.
[2017-01-12] MEDS ORDERED: PLAVIX75 MG PO (15:05)
[2017-01-12] MEDS ORDERED: PRAVACHOL20 MG PO (15:06)
[2017-01-12] MEDS ORDERED: ASPIRIN81 MG PO (15:06)
--- NOTE | 2017-01-12 15:54 | NUR ---
dc given to pt and son
--- NOTE | 2017-01-12 15:55 | NUR ---
DC HOME PER PERSONAL CAR
== END 2017-01-12 15:56 | disposition home or self-care (01) | DRG 249 ==
LOC: D.M2 22:28
PROVIDERS: ADMIT Internal Medicine Interventional Cardiology
DX: I21.4 Non-ST elevation (NSTEMI) myocardial infarction (principal); I70.92 Chronic total occlusion of artery of the extremities; M19.90 Unspecified osteoarthritis, unspecified site; I25.119 Atherosclerotic heart disease of native coronary artery with unspecified angina pectoris; I73.9 Peripheral vascular disease, unspecified; E78.5 Hyperlipidemia, unspecified